=== PATIENT | female | born 1950 | race Caucasian/White ===

== ENCOUNTER 2016-08-02 15:20 | Emergency (ER) | payer MEDICARE, OTHER ==
[2016-08-02 19:00] LABS: BASOPHIL 0.5 % (0-2); HGB 10.2 g/dl (12.5-16.0); LYMPHOCYTE 19.2 % (15-48); MCH 29.3 pg (25.0-31.0); MCHC 31.9 g/dL (32.0-36.0); MONOCYTE 10.1 % (0-12); MPV 9.8 fL (6.0-9.5); NEUTROPHIL 65.2 % (41-80); PLT 165 K/uL (150-400); RBC 3.48 M/uL (4.20-5.40); RDW 15.9 % (11.5-14.0); WBC 4.2 K/uL (4.0-10.5)
[2016-08-02 19:09] LABS: BILIRUBIN - TOTAL 0.2 mg/dL (0.1-1.0); CREATININE 1.3 mg/dL (0.5-1.0); GLOBULIN (CALCULATION) 2.9 g/dL (2.2-4.2); POTASSIUM 4.9 mmol/L (3.5-5.1); TOTAL PROTEIN 6.9 g/dL (6.4-8.3)
== END 2016-08-02 21:50 | disposition home or self-care (01) ==
LOC: FER 15:20
PROVIDERS: Internal Medicine
DX: N17.9 Acute kidney failure, unspecified (principal); R42 Dizziness and giddiness
CPT/HCPCS: 36415; 70450; 80053; 85025